=== PATIENT | female | born 1990 | race Caucasian/White ===

== ENCOUNTER 2022-09-21 15:29 | Emergency (ER) | payer OTHER ==
[2022-09-21 15:34] VITALS: BMI 36.6
[2022-09-21] MEDS ORDERED: SODIUM CHLORIDE 0.9% 500 ML INFUS.BAG IV ONE (16:02)
[2022-09-21] MEDS ORDERED: FAMOTIDINE 20 MG TABLET PO ONE (16:04)
[2022-09-21] MEDS ORDERED: ALPRAZolam 1 MG TABLET PO PRN (16:10)
[2022-09-21] MEDS ORDERED: methylPREDNISolone NA SUCC 125 MG/2 ML VIAL IVPUSH ONE (16:11)
[2022-09-21] MEDS ORDERED: ALPRAZolam 0.25 MG TABLET ONE (16:38)
[2022-09-21 17:23] VITALS: BP 126/86; PULSE 105; RESP 24; TEMP 97.9
[2022-09-21 18:32] LABS: HEMATOCRIT 41.3 % (32.4-45.2); HEMOGLOBIN 13.8 GM/dL (10.7-15.3); MCH 30.4 pg (25.7-33.7); MCHC 33.4 g/dl (32.0-36.0); MEAN CELL VOLUME 90.9 fl (80-96); MEAN PLT VOLUME 7.9 fl (7.5-11.1); PLATELET COUNT 400 10^3/uL (134-434); RBC 4.54 M/mm3 (3.60-5.2); RDW 13.9 % (11.6-15.6); WHITE BLOOD COUNT 10.6 K/mm3 (4.0-10.0)
[2022-09-21 18:45] LABS: CALCIUM 10.1 mg/dL (8.5-10.1)
[2022-09-21 18:46] LABS: ALBUMIN 3.7 g/dl (3.4-5.0); BLOOD UREA NITROGEN 9.7 mg/dL (7-18)
[2022-09-21 18:51] LABS: BILIRUBIN,TOTAL 0.8 mg/dL (0.2-1); TOT PROT 7.7 g/dl (6.4-8.2)
[2022-09-21] MEDS ORDERED: ALPRAZolam 0.25 MG TABLET PO PRN (19:18)
== END 2022-09-21 19:42 | disposition home or self-care (01) ==
LOC: JER 15:29
PROC: 3E033GC Introduction of Other Therapeutic Substance into Peripheral Vein, Percutaneous Approach (ICD-10-PCS; principal; 2022-09-21)
DX: T78.40XA Allergy, unspecified, initial encounter (principal); F41.0 Panic disorder [episodic paroxysmal anxiety]
CPT/HCPCS: 36415; 80053; 84484; 84703; 85027; 93005; 93010; 99284-25